=== PATIENT | male | born 1950 | race Caucasian/White ===

== ENCOUNTER → 2020-05-02 09:46 | Outpatient (CLI) | payer MEDICARE, OTHER, SELFPAY ==
--- NOTE | 2020-05-02 | DI.US.S_ITS ---
PROCEDURE: US CAROTID DOPPLER BI INDICATIONS: RIGHT CAROTID BRUIT TECHNIQUE: Color and pulse Doppler interrogation was performed of both carotid systems, with image documentation and velocity measurements. COMPARISON: None. FINDINGS: Stenosis calculations are based on SRU (Society of Radiologists in Ultras[employer]) criteria. The flow velocities and the arterial waveforms are normal within both carotid arterial systems. Atherosclerotic plaque is seen on both sides. The estimated degree of internal carotid artery stenosis is less than 50%. The right external carotid artery peak systolic velocity is two hundred eight centimeters/second. The left external carotid artery peak systolic velocity is 175 centimeters/second. Antegrade flow is confirmed within both vertebral arteries. IMPRESSION: No hemodynamically significant stenosis is seen of the internal carotid arteries. By velocity criteria, there is a greater than 50% stenosis seen involving the right external carotid artery. The left external carotid artery stenosis approaches 50%. Atherosclerotic plaque is noted bilaterally. Dictated by: Cornelio Jimenez M.D. on 05/02/2020 at 12:09 Approved by: Cornelio Jimenez M.D. on 05/02/2020 at 12:10
== END ==
PROVIDERS: Family Provider Family Medicine; PCP Family Medicine; Referring Provider Family Medicine; Visit Provider Family Medicine
DX: I65.23 Occlusion and stenosis of bilateral carotid arteries (principal); R09.89 Other specified symptoms and signs involving the circulatory and respiratory systems
CPT/HCPCS: 93880

== ENCOUNTER → 2022-04-22 07:44 | Outpatient (CLI) | payer MEDICARE, OTHER, SELFPAY ==
--- NOTE | 2022-04-22 | DI.ECHO.S_ITS ---
[facility] +---------+ [facility] +---------+ : : [address] : : : : [id number] : : : : Phone: [phone]---------+ Echocardiogram Report + + :Name: DESHAWN SANABRIA Study Date: 04/22/2022 Height: 71 in : :[facility] ReadingLocation: Weight: 230 lb : : Gender: Male BSA: 2.2 m2 : :: 1950 Age: 72 yrs BP: 133/92 mmHg: :Reason For Study: CARDIAC MURMUR : :Ordering Physician: LIAM, : :LEONARDO Performed By: Gloria Cortez : :Referring: LEONARDO WHEELER : + + Interpretation Summary The patient was in sinus rhythm with heart rates between 62-67 bpm during the exam. The left ventricle is normal in size. The ejection fraction is estimated to be 60-65%. Diastolic parameters suggest probable normal left ventricular diastolic function and normal filling pressures. There is mild mitral regurgitation. The aortic valve is mildly calcified. There is no aortic stenosis. There is mild aortic regurgitation. No prior study for comparison. Procedure: A two-dimensional transthoracic echocardiogram with color flow and Doppler was performed. The study quality was technically adequate. There is no prior echocardiogram noted for this patient. The patient was in sinus rhythm with heart rates between 62-67 bpm during the exam. Left Ventricle: The left ventricle is normal in size. Proximal septal thickening is noted. The ejection fraction is estimated to be 60-65%. Diastolic parameters suggest probable normal left ventricular diastolic function and normal filling pressures. Right Ventricle: The right ventricle is normal size. Right ventricular systolic function is at the lower limits of normal. Atria: The left atrial size is normal. Right atrial size is normal. There is no Doppler evidence for an interatrial shunt. Mitral Valve: There is mild mitral annular calcification. The mitral valve leaflets appear mildly thickened, but open well. There is mild mitral regurgitation. Aortic Valve: The aortic valve is trileaflet. The aortic valve is mildly calcified. There is mildly reduced leaflet mobility. The peak aortic velocity is 2.4 m/sec. The aortic valve mean gradient is 12 mmHg. The calculated aortic valve area is 1.6 cm2. There is no aortic stenosis. There is mild aortic regurgitation. Tricuspid Valve: The tricuspid valve is normal in structure and function. There is trace tricuspid regurgitation. The right ventricular systolic pressure is estimated to be at least 20 mmHg based on an estimated right atrial pressure of 3 mm Hg. Pulmonic Valve: The pulmonic valve is not well visualized. There is trace pulmonic regurgitation. Great Vessels: The aortic root is normal size. The dimensions of the ascending aorta are normal. The IVC is of normal diameter and collapses greater than 50% with a sniff. This suggests a low right atrial pressure of 3 mm Hg. Pericardium/ Pleura There is no pericardial effusion. There is no pleural effusion. MMode/2D Measurements & Calculations LVIDd: 4.8 cm LVOT diam: 2.1 cm LVIDs: 3.0 cm Ao root diam: 3.1 cm FS: 37.4 % asc Aorta Diam: 3.4 cm EPSS: 1.3 cm Ao Arch Diam (Prox Trans): 2.9 cm IVSd: 0.90 cm LVPWd: 0.97 cm LV padilla. diameter/BSA (cm/m^2): 2.1 LV sys. diameter/BSA (cm/m^2): 1.3 LA A2 area: 24.2 cm2 RA long axis: 5.3 cm LA A4 area: 18.6 cm2 RA area: 18.0 cm2 LA length (vol): 5.9 cm RA vol: 51.9 ml LA vol: 64.3 ml RA : 23.2 ml/m2 LA vol index: 28.7 ml/m2 IVC diam: 1.4 cm RVD1 (basal): 3.2 cm RVD2 (mid): 2.8 cm TAPSE: 1.6 cm Doppler Measurements & Calculations Ao V2 max: 239.8 cm/sec LVOT Max Jose: 111.8 cm/sec Ao V2 mean: 154.9 cm/sec LV V1 max P.0 mmHg Ao max P.7 mmHg LV V1 VTI: 26.8 cm Ao mean P.2 mmHg JOHN(I,D): 1.8 cm2 Ao V2 VTI: 49.8 cm JOHN(V,D): 1.6 cm2 sev ratio: 0.54 JOHN indexed to BSA (cm^2/m^2): 0.82 MV E max jose: 71.1 cm/sec TR max jose: 207.8 cm/sec MV A max jose: 79.9 cm/sec TR max P.3 mmHg MV E/A: 0.89 PA V2 max: 84.8 cm/sec Med Peak E' Jose: 5.9 cm/sec PA V2 mean: 58.9 cm/sec E/E' med: 12.0 PA mean P.6 mmHg Lat Peak E' Jose: 7.1 cm/sec PA pr(Accel): 24.2 mmHg E/E' lat: 10.0 E/e' average: 11.0 MV dec time: 0.26 sec SV(LVOT): 91.4 ml Reading Physician:INDRA
== END ==
PROVIDERS: Family Provider Family Medicine; PCP Family Medicine; Referring Provider Family Medicine; Visit Provider Family Medicine
DX: R01.1 Cardiac murmur, unspecified (principal); I08.0 Rheumatic disorders of both mitral and aortic valves
CPT/HCPCS: 93306